=== PATIENT | female | born 1965 | race Caucasian/White ===

== ENCOUNTER 2021-02-27 16:55 | Emergency (ER) | payer SELFPAY ==
[2021-02-27 16:56] VITALS: BP 165/84; BP 186/95; PULSE 86; PULSE 87; RESP 18; RESP 19; TEMP 36.7; O2SAT 96; BMI 40.6
--- NOTE | 2021-02-27 17:20 | EKG12_ITS ---
Test Reason : SYNCOPE Blood Pressure : / mmHG Vent. Rate : 082 BPM Atrial Rate : 082 BPM P-R Int : 154 ms QRS Dur : 090 ms QT Int : 380 ms P-R-T Axes : 046 033 039 degrees QTc Int : 443 ms Normal sinus rhythm Nonspecific ST abnormality Abnormal ECG Confirmed by GUERO HOLLY, VISH ([id number]), editor trade journal LAILA ROSENBERG ([id number]) on 02/28/2021 11:46:50 AM Referred By: SANJUANITA Confirmed By:VISH JACK MD
--- NOTE | 2021-02-27 17:21 | EX.ED.DYSGE1 ---
HPI History of Present Illness Chief Complaint: Syncope Detail of Chief Complaint: Syncope Informant: patient Narrative Narrative: Patient presents to the emergency department via EMS for syncopal episode that occurred in her chiropractor's office. Patient states that she had an episode earlier this afternoon when she was standing and talking to a friend started feeling somewhat woozy so she sat down and the symptoms passed. Later in the day she went to the chiropractor to get adjusted and while sitting in a chair started feeling hot and sweaty and lightheaded. Patient had called her daughter who would come to the office and the daughter states the patient had a glazed look in her eyes and then she stood up to walk and started to fall but the daughter caught her so she did not injure herself. Patient denies any chest pain. She complains of a just a mild headache. Patient tells me she has had a cough for about 5 to 7 days. She has not been vaccinated against COVID. She denies fever. She has had some chest tightness since she developed a cough. Prior similar symptoms: No PFSH [facility] Medical History (Updated 02/27/21 @ 19:[address] Anyi Quijano, DO) Hypothyroid Home Medications levofloxacin 750 mg PO DAILY #7 tab 02/27/21 [Rx Last Taken Unknown] levothyroxine 125 mcg PO DAILY 02/27/21 [History Last Taken Unknown] Allergy/AdvReac Type Severity Reaction Status Date / Time prednisone Allergy Hives Verified 02/27/21 16:56 Social History Smoking Status: Never smoker ROS ROS ED ROS Narrative Syncopal episode Constitutional Constitutional ED: Reports systems reviewed and no addt'l complaints, except as documented; Denies body ache(s), change in weight or chills Eyes Eyes: Denies acute decrease in peripheral vision, change in vision, double vision or loss of vision ENT ENT ED: Reports none; Denies ear pain, lip swelling, loss taste/smell, neck pain, otalgia or sore throat Cardiovascular Cardiovascular: Reports none; Denies abdominal pain, chest pain with activity, leg edema, lightheadedness, palpitations, rapid heart rate or syncope Respiratory/Chest Respiratory/Chest: Reports none and cough; Denies change in mental status, dry cough, dyspnea, hemoptysis, shortness of breath at rest or shortness of breath with exertion Gastrointestinal Gastrointestinal: Reports none; Denies abdominal pain, change in stool character, diarrhea, hematemesis, hematochezia, melena, rectal bleeding or vomiting Genitourinary Genitourinary ED: Reports none; Denies abdominal discomfort, anuria, dysuria, genital pain or polyuria Musculoskeletal Musculoskeletal: Reports none; Denies arthralgias, back pain, difficulty walking, extremity pain, muscle weakness or myalgias Integumentary Reports none; Denies abscess or rash Neurologic Neurologic: Reports none and headache(s); Denies abnormal gait, confusion, focal weakness, frequent falls, loss of vision, numbness, paresthesias, radicular pain, vertigo or weakness Psychiatric Psychiatric: Reports systems reviewed and no addt'l complaints, except as documented and none; Denies behavioral changes, confusion, difficulty concentrating, hallucinations, suicidal ideation, tactile hallucinations or visual hallucinations Endocrine Endocrinology: Denies none, cold intolerance, excessive sweating, fatigue or heat intolerance Hematologic/Lymphatic Hematologic/Lymphatic: Reports none; Denies anemia, easy bleeding or easy bruising Allergic/Immunologic Allergic/Immunologic ED: Denies as per HPI, none, lip swelling, mouth swelling, throat swelling, tongue swelling or hives EXAM Physical Exam Const Vital Signs: 02/27/21 16:56 02/27/21 17:14 02/27/21 18:37 Temperature 98.1 F Temperature Source Oral Pulse Rate 86 Pulse Rate [Lying] 77 Pulse Rate [Sitting] 81 Pulse Rate [Standing] 96 Respiratory Rate 19 H Respiratory Effort Normal Non-Labored Respiratory Pattern Normal Blood Pressure 165/84 H Blood Pressure [Lying] 144/72 H Blood Pressure [Sitting] 141/90 H Blood Pressure [Standing] 159/94 H Blood Pressure Mean 111 Blood Pressure Mean [Lying] 96 Blood Pressure Mean [Sitting] 107 Blood Pressure Mean [Standing] 115 Pulse Ox 96 Oxygen Delivery Method Room Air Positive well nourished and well developed General Appearance ED: well developed and NAD HEENT Reports TM's clear and moist mucous membranes normocephalic and atraumatic; Negative for trauma or tenderness Tympanic Membrane ED: Yes TM's clear Eyes PERRL and EOMs intact bilaterally General Eye ED: Negative for pale conjunctiva or scleral icterus Neck no lymphadenopathy, supple and no JVD General: Negative for tenderness Chest Wall inspection of chest normal and palpation of chest normal Chest: Negative for tenderness Resp normal respiratory effort and clear to auscultation bilaterally Effort and Inspection: Negative for respiratory distress or pain with movement Auscultation: Negative for rhonchi, wheezes or diminished lung sounds Cardio regular rate, regular rhythm, S1 normal heart sound, S2 normal heart sound and no murmurs Peripheral Pulses: pulses 2+ throughout GI normal to inspection, nondistended, normoactive bowel sounds, soft to palpation, non-tender, non-distended and no masses Back/Spine no CVA tenderness and no thoracic nor lumbar tenderness Extremity normal to inspection General Extremety ED: Negative for edema General Extremity: Negative for edema Neuro oriented x3, CN's II-XII intact bilaterally, no sensory deficits noted and gait normal Sensorium / Orientation: awake, alert, oriented to person, oriented to place and oriented to time Motor Exam: strength 5/5 throughout and strength abnormal Psych mental status grossly normal Skin no rashes or lesions noted and no wounds MDM MDM MDM Narrative Medical decision making narrative: IV line established on arrival. Patient placed on a chart calculator. Orthostatic vital signs were negative. Patient was noted to have an elevated white blood cell count and evidence of right lower lobe pneumonia. Patient was started on Levaquin IV. At this point clinically the patient looks well I do not feel she will require admission. She is not hypoxic or tachycardic. Patient will be treated with Levaquin. Patient advised to return if increasing shortness of breath or condition worsen anyway. Patient otherwise to follow-up with primary care physician in 3 to 5 days. Lab Data Attestation: I reviewed the patient's lab results. Labs: Laboratory Results - last 24 hr 02/27/21 02/27/21 02/27/21 17:55 17:55 17:55 WBC 17.6 H RBC 4.86 Hgb 13.0 Hct 40.2 MCV 82.7 MCH 26.7 L MCHC 32.3 RDW Std Deviation 45.1 H RDW Coeff of Zaynab 14.9 H Plt Count 323 MPV 9.9 Immature Gran % (Auto) 0.400 Neut % (Auto) 86.4 H Lymph % (Auto) 7.8 L [place] % (Auto) 4.4 Eos % (Auto) 0.7 Baso % (Auto) 0.3 Absolute Neuts (auto) 15.2 H Absolute Lymphs (auto) 1.37 Nucleated RBC % 0 D-Dimer Quant (PE/DVT) 0.40 Sodium 136 Potassium 3.5 Chloride 104 Carbon Dioxide 24.0 Anion Gap 8 BUN 10 Creatinine 0.89 Estim Creat Clear Calc 58.39 Est GFR (MDRD) Af Amer 85 Est GFR (MDRD) Non-Af 70 BUN/Creatinine Ratio 11.3 Glucose 169 H Lactic Acid Calcium 9.3 Troponin I High Sens < 3 L 02/27/21 17:55 WBC RBC Hgb Hct MCV MCH MCHC RDW Std Deviation RDW Coeff of Zaynab Plt Count MPV Immature Gran % (Auto) Neut % (Auto) Lymph % (Auto) [place] % (Auto) Eos % (Auto) Baso % (Auto) Absolute Neuts (auto) Absolute Lymphs (auto) Nucleated RBC % D-Dimer Quant (PE/DVT) Sodium Potassium Chloride Carbon Dioxide Anion Gap BUN Creatinine Estim Creat Clear Calc Est GFR (MDRD) Af Amer Est GFR (MDRD) Non-Af BUN/Creatinine Ratio Glucose Lactic Acid 2.4 H* Calcium Troponin I High Sens Radiography Diagnostic Testing: Clinical Impression(s) from Imaging Studies Chest X-Ray 02/27/21 18:05 IMPRESSION: Right middle lobe pneumonia. Electronically Signed: Dean Pearson MD at 18:14 EST Tel , Service support , 1 view chest x-ray obtained interpreted by myself as increased markings right lower lobe. Radiology felt patient had right middle lobe pneumonia. EKG Initial EKG: Attestation: I personally reviewed and interpreted this EKG as follows: Comments: Sinus rhythm with a ventricular rate of [address] changes. Discharge Plan Triage Chief Complaint: Syncope ED Provider: Anyi Quijano Dx/Rx/DC Orders Clinical Impression: Pneumonia, Syncope Instructions: ED Pneumonia (Adult), ED Fainting, Uncertain Cause Prescriptions: New levofloxacin 750 mg tablet 750 mg PO DAILY Qty: 7 RF: 0 No Action levothyroxine 125 mcg Tablet 125 mcg PO DAILY RF: 0 Primary Care Provider: Ike Sheth Referrals: Ike Sheth DO [Primary Care Provider] - 3-5 Days Disposition Disposition: Home, Self Care
[2021-02-27] MEDS: 0.9% Normal Saline 1,000 ML 150 ML IV (17:44)
--- NOTE | 2021-02-27 18:02 | CM.ED ---
RADHA Note Referral Source: Case Find Referral Reason: No insurance SW met with patient and her . Provided them with self pay packet. Nguyen BAUTISTA
--- NOTE | 2021-02-27 18:05 | RAD_ITS ---
STUDY: X-RAY CHEST REASON FOR EXAM: Female, 55 years old. cough TECHNIQUE: Single AP portable view of the chest. COMPARISON: None. FINDINGS: Alveolar opacity in the lower right lung consistent with right middle lobe pneumonia. There is no demonstrated pleural abnormality. Normal size heart. Normal mediastinum and derick. Normal visualized pulmonary arteries. Normal visualized aortic arch and descending thoracic aorta. Normal visualized thoracic spine. Normal visualized ribs, clavicles, and shoulders. There is no demonstrated abnormality of the visualized soft tissue structures of the upper abdomen. RAD/Chest 1 View (Portable) IMPRESSION: Right middle lobe pneumonia. Electronically Signed: Dean Pearson MD at 18:14 EST Tel , Service support ,
[2021-02-27 18:08] LABS: Absolute Lymphocyte Count 1.37 X10^3/uL (0.83-4.51); Absolute Neutrophil Count 15.2 X10^3/uL (2.0-7.7); Basophil# 0.05 X10^3/uL; Basophil% 0.3 % (0-1); Eosinophil# 0.12 X10^3/uL; Eosinophils% 0.7 % (0-5); Hematocrit 40.2 % (37-47); Lymphocyte # 1.37 X10^3/ul (0.83-4.51); Lymphocyte % 7.8 % (19-41); Mean Corp Hgb Conc 32.3 g/dL (32-36); Mean Corpuscular Hgb 26.7 pg (27.0-32.0); Mean Corpuscular Volume 82.7 fL (81-99); Mean Platelet Vol. 9.9 fl (6.2-12.0); Monocyte# 0.77 X10^3/uL; Monocyte% 4.4 % (0-10); NRBC Flagged by Analyzer 0 % (0-5); Neutrophil # 15.22 X10^3/uL (2.7-7.7); Neutrophil % 86.4 % (47-70); Platelet Count 323 K/mm3 (150-450); RBC Distribution Width CV 14.9 % (11.6-14.6); RBC Distribution Width SD 45.1 fl (35.1-43.9); Red Blood Count 4.86 M/mm3 (4.2-5.4); White Blood Count 17.6 K/mm3 (4.4-11.0)
[2021-02-27 18:27] LABS: Anion Gap 8 (5-15); BUN 10 mg/dL (7-18); BUN/Creat Ratio 11.3 RATIO (10-20); Calcium,Total 9.3 mg/dL (8.5-10.1); Chloride 104 mmol/L (98-107); Creatinine, Serum 0.89 mg/dL (0.55-1.02); EST Glomerular Filtration Rate 70 mL/min (>60); Est Glom Filt Rate - Afr Amer 85 mL/min (>60); Estimated Creatinine Clearance 58.39 ml/min; Glucose 169 mg/dL (74-106); Potassium 3.5 mmol/L (3.5-5.1); Sodium Level 136 mmol/L (136-145); Troponin-I HS < 3 pg/mL (3.0-54.0)
[2021-02-27 18:37] VITALS: BP 141/90; BP 144/72; BP 159/94; PULSE 77; PULSE 81; PULSE 96
[2021-02-27] MEDS: levoFLOXacin IV 750 MG/150 ML BAG 100 MG IV (18:47)
[2021-02-27 19:11] LABS: Lactic Acid 2.4 mmol/L (0.4-1.9)
[2021-02-27 20:26] VITALS: BP 150/94; PULSE 86; RESP 21; O2SAT 95
[2021-02-27 22:04] LABS: Reflex Lactate? Y
== END 2021-02-27 20:27 | disposition home or self-care (01) ==
PROVIDERS: Emergency Provider Emergency Medicine; PCP Family Medicine; Visit Provider Emergency Medicine
DX: J18.9 Pneumonia, unspecified organism (principal); R55 Syncope and collapse; E03.9 Hypothyroidism, unspecified; Z79.899 Other long term (current) drug therapy
CPT/HCPCS: 71045; 80048; 83605; 84484; 85025; 85379; 87426; 93005; 96361; 96365; 96366; 99285; J7030; A4216

== ENCOUNTER 2023-11-24 12:04 | Observation (INO) | payer OTHER, SELFPAY ==
[2023-11-24 12:05] VITALS: BP 174/85; PULSE 64; RESP 18; TEMP 36.4; O2SAT 99; BMI 39.6
--- NOTE | 2023-11-24 12:32 | EX.ED.DYSGE1 ---
HPI <MILEY Carlos - Last Filed: 11/24/23 15:54> History of Present Illness Chief Complaint: GI Bleed Narrative Narrative: Patient is a 58-year-old female with history of hypothyroidism presents to the emergency department with 3 weeks of worsening abdominal pain, nausea and vomiting. Patient states 2 nights ago, she did have blood coming from her rectum. She states it was just straight blood. This happened 2-3 times on Friday. She has had a normal bowel movement this morning with no blood. Secondary to her lower abdominal cramping, she was told to come to the emergency department. She denies any dizziness, chest pain or shortness of breath. PFSH <MILEY Carlos - Last Filed: 11/24/23 15:54> [facility] Medical History Hypothyroid Home Medications ?Medication ?Instructions ?Recorded ?Last Taken ?Type levofloxacin 750 mg tablet 750 mg PO DAILY #7 tabs 02/27/21 Unknown Rx levothyroxine 125 mcg tablet 125 mcg PO DAILY 02/27/21 Unknown History Allergy/AdvReac Type Severity Reaction Status Date / Time prednisone Allergy Hives Verified 11/24/23 12:07 Family History (Updated 11/24/23 @ 16:[address] Lele Michael MD) Other Heart disease Social History Smoking Status: Never smoker ROS <MILEY Carlos - Last Filed: 11/24/23 15:54> ROS ED ROS Narrative Constitutional: Negative for fever, chills, weight loss, weakness Eyes: Negative for vision loss, vision change, double vision ENT: Negative for any sore throat, ear pain, congestion Cardiovascular: Negative for any chest pain, tightness, palpitations Respiratory: Negative for any cough, sputum production, hemoptysis, dyspnea, dyspnea on exertion, orthopnea Gastrointestinal: Negative for any vomiting, diarrhea, constipation, blood in vomit. Positive lower abdominal pain, nausea vomiting, blood in stool : Negative for any urinary frequency, dysuria, retention, blood in urine Muscle skeletal: Negative for any neck pain, back pain Neurological: Negative for any headache, syncope, dizziness Skin: Negative for any rashes, itching, abrasions, lacerations Psychiatric: Negative for any depression, anxiety, stress, suicidal ideation, homicidal ideation Hematologic: Negative for any excessive bruising, easy bleeding EXAM <MILEY Carlos - Last Filed: 11/24/23 15:54> Physical Exam Narrative Exam Narrative: Vital signs reviewed. HEET: Head normocephalic atraumatic, TMs clear bilaterally. Posterior pharynx is clear, moist mucous membranes. Nares clear bilaterally. Neck: Supple with no lymphadenopathy or tenderness. No signs of meningismus. Cardiac: Regular rate and rhythm no murmurs gallops or rubs, equal peripheral pulses bilaterally. Respiratory: Lungs clear to auscultation bilaterally. No chest tenderness. Abdomen: Soft, nondistended. No abdominal bruit or pulsatile masses. No hepatosplenomegaly. Tenderness to the lower abdomen. No peritoneal signs. Active bowel sounds in all quadrants Extremities: No peripheral edema, no signs of gross trauma or deformity. Active full range of motion of all extremities. Neuro: Cranial nerves II through XII intact, no focal neurological deficits. Skin: Clean dry and intact with no rash, purpura, petechiae, vesicles or pustules. Backs/flank: No CVA tenderness, no midline spinal tenderness, no deformity. Psych: Normal mood and affect. No SI, HI or acute psychosis. Const Vital Signs: 11/24/23 12:05 11/24/23 14:54 Temperature 97.6 F L Temperature Source Temporal Pulse Rate 64 59 L Respiratory Rate 18 18 Blood Pressure 174/85 H 163/84 H Blood Pressure Mean 114 110 Pulse Ox 99 100 Oxygen Delivery Method Room Air Room Air Positive well nourished and well developed General Appearance ED: well developed <Dr. Donny Bliss DO - Last Filed: 11/24/23 19:37> Physical Exam Const Vital Signs: 11/24/23 12:05 11/24/23 14:54 Temperature 97.6 F L Temperature Source Temporal Pulse Rate 64 59 L Respiratory Rate 18 18 Blood Pressure 174/85 H 163/84 H Blood Pressure Mean 114 110 Pulse Ox 99 100 Oxygen Delivery Method Room Air Room Air MDM <MILEY Carlos - Last Filed: 11/24/23 15:54> [facility] Lab Data Labs: Laboratory Results - last 24 hr 11/24/23 12:53 WBC 8.0 RBC 4.54 Hgb 13.6 Hct 40.8 MCV 89.9 MCH 30.0 MCHC 33.3 RDW Std Deviation 41.3 RDW Coeff of Zaynab 12.5 Plt Count 322 MPV 9.7 Immature Gran % (Auto) 0.300 Neut % (Auto) 62.4 Lymph % (Auto) 28.6 [place] % (Auto) 6.1 Eos % (Auto) 1.8 Baso % (Auto) 0.8 Absolute Neuts (auto) 5.0 Absolute Lymphs (auto) 2.28 Nucleated RBC % 0 Sodium 140 Potassium 4.2 Chloride 108 H Carbon Dioxide 26.0 Anion Gap 6 BUN 13 Creatinine 0.81 Estim Creat Clear Calc 85.10 Est GFR (MDRD) Af Amer 93 Est GFR (MDRD) Non-Af 77 BUN/Creatinine Ratio 16.1 Glucose 95 Lactic Acid 1.1 Calcium 9.3 Total Bilirubin 1.30 H AST 17 ALT 24 Alkaline Phosphatase 71 Total Protein 7.9 Albumin 3.6 Globulin 4.3 H Albumin/Globulin Ratio 0.8 L Lipase 48 Radiography Diagnostic Testing: Clinical Impression(s) from Imaging Studies Abdomen/Pelvis CT 11/24/23 13:55 IMPRESSION: Fatty infiltration of the liver. Scattered sigmoid diverticula. Electronically Signed: Godwin Peace MD at 14:14 EDT , Treatment and Re-Evaluation :: Differential diagnosis includes however is not limited to: Diverticulitis, colitis, Crohn's disease, mass, diverticulitis Patient appears generally well, vital signs are stable, patient is nontoxic-appearing. Presenting to the emergency department for with complaints of 3 weeks of generalized lower abdominal pain, blood in her stool. Patient will receive a full abdominal workup.Patient will receive a full laboratory workup, patient CBC shows stable hemoglobin at 13.6, white blood cell count of 8.0 which is negative. Chemistries were unremarkable, total bilirubin is 1.3, lipase was negative. Patient's stool was positive for blood on rectal exam. CT scan of the abdomen pelvis showed fatty infiltration of the liver, scattered sigmoid diverticula, secondary to the patient having new onset of rectal bleeding, abdominal pain, I will reach out to Dr. Reynolds from GI. Spoke with Dr. Reynolds, at this time, the patient will be admitted to the hospital. Dr. Reynolds will scope the patient tomorrow. I spoke with the patient she is agreeable. Patient stable for admission. <Dr. Donny Bliss DO - Last Filed: 11/24/23 19:37> [facility] Lab Data Labs: Laboratory Results - last 24 hr 11/24/23 12:53 WBC 8.0 RBC 4.54 Hgb 13.6 Hct 40.8 MCV 89.9 MCH 30.0 MCHC 33.3 RDW Std Deviation 41.3 RDW Coeff of Zaynab 12.5 Plt Count 322 MPV 9.7 Immature Gran % (Auto) 0.300 Neut % (Auto) 62.4 Lymph % (Auto) 28.6 [place] % (Auto) 6.1 Eos % (Auto) 1.8 Baso % (Auto) 0.8 Absolute Neuts (auto) 5.0 Absolute Lymphs (auto) 2.28 Nucleated RBC % 0 Sodium 140 Potassium 4.2 Chloride 108 H Carbon Dioxide 26.0 Anion Gap 6 BUN 13 Creatinine 0.81 Estim Creat Clear Calc 85.10 Est GFR (MDRD) Af Amer 93 Est GFR (MDRD) Non-Af 77 BUN/Creatinine Ratio 16.1 Glucose 95 Lactic Acid 1.1 Calcium 9.3 Total Bilirubin 1.30 H AST 17 ALT 24 Alkaline Phosphatase 71 Total Protein 7.9 Albumin 3.6 Globulin 4.3 H Albumin/Globulin Ratio 0.8 L Lipase 48 Radiography Diagnostic Testing: Clinical Impression(s) from Imaging Studies Abdomen/Pelvis CT 11/24/23 13:55 IMPRESSION: Fatty infiltration of the liver. Scattered sigmoid diverticula. Electronically Signed: Godwin Peace MD at 14:14 EDT , Treatment and Re-Evaluation :: Differential diagnosis includes however is not limited to: Diverticulitis, colitis, Crohn's disease, mass, diverticulitis Patient appears generally well, vital signs are stable, patient is nontoxic-appearing. Presenting to the emergency department for with complaints of 3 weeks of generalized lower abdominal pain, blood in her stool. Patient will receive a full abdominal workup.Patient will receive a full laboratory workup, patient CBC shows stable hemoglobin at 13.6, white blood cell count of 8.0 which is negative. Chemistries were unremarkable, total bilirubin is 1.3, lipase was negative. Patient's stool was positive for blood on rectal exam. CT scan of the abdomen pelvis showed fatty infiltration of the liver, scattered sigmoid diverticula, secondary to the patient having new onset of rectal bleeding, abdominal pain, I will reach out to Dr. Reynolds from GI. Spoke with Dr. Reynolds, at this time, the patient will be admitted to the hospital. Dr. Reynolds will scope the patient tomorrow. I spoke with the patient she is agreeable. Patient stable for admission. Supervisory Physician Note Patient was seen and examined with the Advanced Practice Provider. Nursing notes and vital signs have been reviewed. Pertinent old records have been reviewed. I agree with the essential elements of the RAINA's history, physical exam, assessment, and plan. The differential diagnosis and management options were discussed with the RAINA. I participated in determining and agree with the management, procedures, final impression and disposition as documented. See changes noted by me. Please see addendum or separate note for any additional details. 58-year-old female presents for evaluation of bloody bowel movements. Patient states she has been having lower abdominal pain with nausea and vomiting. She states 2 nights ago she noticed bright red blood and clots in her stool. Endorses diarrhea. States she did not see blood in her stool today. Denies black tarry stools. Denies history of diverticulosis or diverticulitis. Has never had a colonoscopy. Denies any fever, chills, chest pain, shortness of breath, dysuria, lightheadedness. Pertinent exam findings: CV: RRR, no murmurs Resp: Lungs CTA BL, no w/r/c GI: Abd soft, non-distended, tender to palpation of the bilateral quadrants, no rebound or rigidity Rectal: Small nonthrombosed external hemorrhoid. Normal tone and sensation. No masses, fluctuance, or tenderness. No pain out of proportion. Stool brown. Differential diagnosis includes but is not limited to diverticulosis, diverticulitis, colitis, gastroenteritis Abdominal pain workup ordered including CT abdomen pelvis. CBC without leukocytosis or anemia. CMP relatively unremarkable except for mildly elevated bilirubin at 1.3. Patient not having any right upper quadrant abdominal pain. No transaminitis. Lipase unremarkable. CT abdomen pelvis shows fatty liver with sigmoid diverticula. No diverticulitis. Occult positive. Given patient's continued GI bleed with abdominal pain and no previous history of colonoscopy, GI was consulted and patient was discussed. Plan is for admission with colonoscopy tomorrow. Impression: 1. Lower GI bleed 2. Diverticulosis 3. Fatty Liver Discharge Plan Dx/Rx/DC Orders Clinical Impression: Abdominal pain, Diverticular disease, Bright red rectal bleeding Disposition Disposition: Acute Care Hospital [facility] Discharge Date/Time: 11/24/23 17:58
[2023-11-24 13:04] LABS: Absolute Lymphocyte Count 2.28 X10^3/uL (0.83-4.51); Basophil# 0.06 X10^3/uL; Basophil% 0.8 % (0-1); Eosinophil# 0.14 X10^3/uL; Eosinophils% 1.8 % (0-5); Hematocrit 40.8 % (37-47); Hemoglobin 13.6 g/dL (12.0-15.0); Lymphocyte # 2.28 X10^3/ul (0.83-4.51); Lymphocyte % 28.6 % (19-41); Mean Corp Hgb Conc 33.3 g/dL (32-36); Mean Corpuscular Volume 89.9 fL (81-99); Mean Platelet Vol. 9.7 fl (6.2-12.0); Monocyte# 0.49 X10^3/uL; Monocyte% 6.1 % (0-10); NRBC Flagged by Analyzer 0 % (0-5); Neutrophil # 4.98 X10^3/uL (2.7-7.7); Neutrophil % 62.4 % (47-70); Platelet Count 322 K/mm3 (150-450); RBC Distribution Width CV 12.5 % (11.6-14.6); RBC Distribution Width SD 41.3 fl (35.1-43.9); Red Blood Count 4.54 M/mm3 (4.2-5.4)
[2023-11-24 13:21] LABS: ALB/GLOB Ratio 0.8 RATIO (0.9-2.4); AST(SGOT) 17 U/L (15-37); Alanine Aminotransfer ALT/SGPT 24 U/L (13-56); Albumin, Serum 3.6 g/dL (3.2-5.0); Alkaline Phosphatase 71 U/L (45-117); Anion Gap 6 (5-15); BUN 13 mg/dL (7-18); BUN/Creat Ratio 16.1 RATIO (10-20); Calcium,Total 9.3 mg/dL (8.5-10.1); Chloride 108 mmol/L (98-107); Creatinine, Serum 0.81 mg/dL (0.55-1.02); EST Glomerular Filtration Rate 77 mL/min (>60); Est Glom Filt Rate - Afr Amer 93 mL/min (>60); Globulin 4.3 g/dL (2.2-4.2); Glucose 95 mg/dL (74-106); Lipase 48 U/L (13-75); Potassium 4.2 mmol/L (3.5-5.1); Protein, Total 7.9 g/dL (6.4-8.2); Sodium Level 140 mmol/L (136-145)
[2023-11-24 13:31] LABS: Lactic Acid 1.1 mmol/L (0.4-1.9)
--- NOTE | 2023-11-24 13:55 | CT_ITS ---
STUDY: CT ABDOMEN AND PELVIS WITH CONTRAST REASON FOR EXAM: Female, 58 years old. Abdominal pain RADIATION DOSAGE (If Supplied By Facility): CTDIvol = ( 15.92 ) mGy, DLP = ( 1231.64 ) mGycm TECHNIQUE: Transaxial images were obtained from the dome of the diaphragm to the symphysis pubis without oral contrast. IV 100mL Isovue-300 was administered. Sagittal and coronal images were reconstructed. Individualized dose optimization techniques were used for this CT. COMPARISON: None. FINDINGS: Calcified right hilar lymph nodes. Calcified granuloma at the right lung base. Minimal increased linear markings at the lung bases suggests a mild linear atelectasis. The visualized portions of the heart are within normal limits. There is decreased attenuation of the liver consistent with steatosis. Normal gallbladder and extrahepatic biliary system. Normal spleen. Normal pancreas. Normal bilateral adrenal glands. Normal right kidney. Normal left kidney. Normal visualized stomach. Normal small intestine. There are scattered colonic diverticula consistent with diverticulosis. The appendix is visualized and appears normal. There is scattered atherosclerotic calcification of the abdominal aorta, without a demonstrated aneurysm. Normal inferior vena cava. Normal retroperitoneum. Normal urinary bladder. Findings suggestive of postsurgical changes at the level of the umbilicus. Small benign-appearing lymph nodes are seen in both groins. This space narrowing and degeneration at the L5-S1 level. CT/Abdomen/Pelvis W IV Cont ONLY IMPRESSION: Fatty infiltration of the liver. Scattered sigmoid diverticula. Electronically Signed: Godwin Peace MD at 14:14 EDT ,
[2023-11-24 14:54] VITALS: BP 163/84; PULSE 59; RESP 18; O2SAT 100
--- NOTE | 2023-11-24 15:41 | HP.PCM.HOS_ITS ---
HPI - General General Date of Admission: 11/24/23 Date of Service: 11/24/23 Chief Complaint: Hematochezia HPI Narrative WILLIE GODINEZ, is a 58 F with a significant history of hypothyroidism who presents present emergency department with hematochezia. Her symptoms started 3 days ago. She was passing bloody clumps rectally. Associated with her symptoms is a 3-week history of lower abdominal pain. Her rectal bleeding gradually reduced to a point where she would only see blood when she wiped her rectum. On the day of presentation she did not notice any blood at all. On the day of presentation she went to see her PCP who recommended patient comes to the emergency department. At the emergency department patient was found to have blood in the stool. She has never had a colonoscopy before. ED provider discussed case with GI who recommended patient stays at the hospital for colonoscopy. [facility] Medical History Hypothyroid Home Medications ?Medication ?Instructions ?Recorded ?Last Taken ?Type levofloxacin 750 mg tablet 750 mg PO DAILY #7 tabs 02/27/21 Unknown Rx levothyroxine 125 mcg tablet 125 mcg PO DAILY 02/27/21 Unknown History Allergy/AdvReac Type Severity Reaction Status Date / Time prednisone Allergy Hives Verified 11/24/23 12:07 Family History (Updated 11/24/23 @ 16:[address] Lele Michael MD) Other Heart disease Social History Smoking Status: Never smoker ROS ROS Narrative Pertinent positives and pertinent negatives as noted in HPI. All other systems were reviewed and are negative Vital Signs Vital Signs Vital Signs: 11/24/23 12:05 11/24/23 14:54 Temperature 97.6 F L Temperature Source Temporal Pulse Rate 64 59 L Respiratory Rate 18 18 Blood Pressure 174/85 H 163/84 H Blood Pressure Mean 114 110 Pulse Ox 99 100 Oxygen Delivery Method Room Air Room Air Weight Weight: 101.605 kg Body Mass Index (BMI) 39.6 Physical Exam Narrative Physical exam: General: Well-nourished, well-developed. Head: Normocephalic, atraumatic, no tenderness Eyes: Vision is grossly intact. EOMI ENT, no trauma, moist mucous membranes, no rhinorrhea Neck: Nontender, No thyromegaly. CVS: Regular rate and rhythm. S1-S2 present. No murmur, gallop or rub. Respiratory : clear to auscultation bilaterally, chest wall nontender Abdomen: Soft, nontender, nondistended, normal bowel sounds, no masses : Deferred Back: Nontender, no CVA tenderness, no midline spinal tenderness, deformities, step-offs Extremities: Nontender full range of motion, no trauma Skin: Normal color, no trauma, abrasions Neuro: Alert, oriented, cranial nerves II through XII grossly intact. Psychiatry: Normal mood. Normal affect. Not depressed. Not anxious. Results Lab / Micro Data 11/24/23 12:53 11/24/23 12:53 Labs: Laboratory Results - last 24 hr 11/24/23 12:53: WBC 8.0, RBC 4.54, Hgb 13.6, Hct 40.8, MCV 89.9, MCH 30.0, MCHC 33.3, RDW Std Deviation 41.3, RDW Coeff of Zaynab 12.5, Plt Count 322, MPV 9.7, Immature Gran % (Auto) 0.300, Neut % (Auto) 62.4, Lymph % (Auto) 28.6, [place] % (Auto) 6.1, Eos % (Auto) 1.8, Baso % (Auto) 0.8, Absolute Neuts (auto) 5.0, Absolute Lymphs (auto) 2.28, Nucleated RBC % 0, Sodium 140, Potassium 4.2, C hloride 108 H, Carbon Dioxide 26.0, Anion Gap 6, BUN 13, Creatinine 0.81, Estim Creat Clear Calc 85.10, Est GFR (MDRD) Af Amer 93, Est GFR (MDRD) Non-Af 77, BUN/Creatinine Ratio 16.1, Glucose 95, Lactic Acid 1.1, Calcium 9.3, Total Bilirubin 1.30 H, AST 17, ALT 24, Alkaline Phosphatase 71, Total Protein 7.9, Albumin 3.6, Globulin 4.3 H, Albumin/Globulin Ratio 0.8 L, Lipase 48 Micro: Microbiology 11/24/23 13:25 Stool Stool Occult Blood (REDD) - Final Occult Blood Positive Imaging Radiology Impression Abdomen/Pelvis CT 11/24/23 13:55 IMPRESSION: Fatty infiltration of the liver. Scattered sigmoid diverticula. Electronically Signed: Godwin Peace MD at 14:14 EDT , Assessment & Plan Assessment/Plan (1) Bright red rectal bleeding: (2) Abdominal pain: QUALIFIERS: Abdominal location: lower abdomen, unspecified Q ualified Code(s): R10.30 - Lower abdominal pain, unspecified (3) [place] disease: PLAN: Plan CT of abdomen and pelvis independently interpreted by myself with results showing Fatty infiltration of the liver; Scattered sigmoid diverticula. Agrees with radiology interpretation. Discussed case with ED physician and GI. IV fluids ordered H&H every 6 hours Morphine IV for pain Clear liquid diet and then n.p.o. IV fluids ordered. Bowel prep ordered by GI. Morbid Obesity: BMI: 39.7 kg/m?. Complicates care. Lifestyle modification recommended. Hyperbilirubinemia Trend CMP. Per GI likely Gilbert's disease. DVT prophylaxis SCD Advance care planning: Discussed with patient and family advanced directives as well as CODE STATUS. Explained various CODE STATUS: FULL CODE, DNR CCA, DNR CCA with no intubation, and DNR CC- and what each meant. Patient elected to be a full code with CPR and intubation if warranted. Order was placed. Patient's is her surrogate decision maker. Time spent on discussion 16 minutes. Time spent in the patient's overall evaluation,decision-making process, review of diagnostic data, adjustment of management, discussion with other providers, nursing and ancillary staff involved in patient's care documentation, 75 minutes. Charges/Coding Visit Charges Inpatient E&M: 86137 Init Hosp L3 Procedures Hospitalists Procedures: 91766 Advncd Care Plan 30 Min
[2023-11-24 16:00] VITALS: BP 156/77
--- NOTE | 2023-11-24 18:02 | EX.PCM.CON.G ---
HPI Consult Data Date of Consult: 11/24/23 HPI Narrative Reason for Consultation: Lower GI bleed HPI Narrative: WILLIE GODINEZ, is a 58-year-old female with history of hypothyroidism presents to the emergency department with 3 weeks of worsening abdominal pain, nausea and vomiting. Patient states 2 nights ago, she did have blood coming from her rectum. She states it was just straight blood. This happened 2-3 times on Friday. She has had a normal bowel movement this morning with no blood. Secondary to her lower abdominal cramping, she was told to come to the emergency department. She denies any dizziness, chest pain or shortness of breath. She has no history of bleeding problems. She has never had a colonoscopy. She has no history of blood clots. She has no family history of bleeding issues. She does not take any blood thinners on a daily basis. 11/24/23 12:53: WBC 8.0, RBC 4.54, Hgb 13.6, Hct 40.8, MCV 89.9,, Plt Count 322, Sodium 140, Potassium 4.2, Chloride 108 H, Carbon Dioxide 26.0, Anion Gap 6, BUN 13, Creatinine 0.81, Glucose 95, Lactic Acid 1.1, Calcium 9.3, Total Bilirubin 1.30 H, AST 17, ALT 24, Alkaline Phosphatase 71, Total Protein 7.9, Albumin 3.6, Globulin 4.3 H, Albumin/Globulin Ratio 0.8 L, Lipase 48 CT scan of the abdomen and pelvis: Calcified right hilar lymph nodes. Calcified granuloma at the right lung base. Minimal increased linear markings at the lung bases suggests a mild linear atelectasis. The visualized portions of the heart are within normal limits. There is decreased attenuation of the liver consistent with steatosis. Normal gallbladder and extrahepatic biliary system. Normal spleen. Normal pancreas. Normal bilateral adrenal glands. Normal right kidney. Normal left kidney. Normal visualized stomach. Normal small intestine. There are scattered colonic diverticula consistent with diverticulosis. The appendix is visualized and appears normal. There is scattered atherosclerotic calcification of the abdominal aorta, without a demonstrated aneurysm. Normal inferior vena cava. Normal retroperitoneum. Normal urinary bladder. Findings suggestive of postsurgical changes at the level of the umbilicus. Small benign-appearing lymph nodes are seen in both groins. This space narrowing and degeneration at the L5-S1 level. [facility] Medical History Hypothyroid Home Medications ?Medication ?Instructions ?Recorded ?Last Taken ?Type levofloxacin 750 mg tablet 750 mg PO DAILY #7 tabs 02/27/21 Unknown Rx levothyroxine 125 mcg tablet 125 mcg PO DAILY 02/27/21 Unknown History Allergy/AdvReac Type Severity Reaction Status Date / Time prednisone Allergy Hives Verified 11/24/23 12:07 Family History (Updated 11/24/23 @ 16:[address] Lele Michael MD) Other Heart disease Social History Smoking Status: Never smoker ROS Review of Systems ROS Unobtainable: other Constitutional Constitutional: Denies fatigue, fever(s), poor appetite, weight gain or weight loss ENT HEENT: Denies mouth lesions Cardiovascular Cardiovascular: Denies abdominal bloating, abdominal edema or abdominal pain Respiratory/Chest Respiratory/Chest: Denies change in mental status, change in phlegm color, chest congestion or chest tightness Gastrointestinal Gastrointestinal: Denies belching, bloating, change in bowel habits, change in stool character, chewing difficulty, coffee ground emesis, constipation, cramping, diarrhea, dyspepsia, dysphagia, early satiety, excessive flatus, fecal incontinence, heartburn, hematemesis, hematochezia, hemorrhoids, loose stools, melena, nausea, odynophagia, rectal bleeding, tenesmus, vomiting or weight changes Genitourinary Genitourinary: Denies abdominal discomfort, burning urination or itching Musculoskeletal Musculoskeletal: Reports as per HPI; Denies muscle weakness or myalgias Integumentary Integumentary: Denies jaundice Neurologic Neurologic: Denies lack of coordination or weakness Psychiatric Psychiatric: Denies confusion, depression, memory loss, mood swings, paranoia or suicidal ideation Endocrine Endocrinology: Denies systems reviewed and no addt'l complaints, except as documented Hematologic/Lymphatic Hematologic/Lymphatic: Denies anemia, easy bleeding, easy bruising or lymphadenopathy Allergic/Immunologic Allergic/Immunologic: Denies systems reviewed and no addt'l complaints, except as documented Physical Exam Narrative Physical exam: General: Well-nourished, well-developed. Head: Normocephalic, atraumatic, no tenderness Eyes: Vision is grossly intact. EOMI ENT, no trauma, moist mucous membranes, no rhinorrhea Neck: Nontender, No thyromegaly. CVS: Regular rate and rhythm. S1-S2 present. No murmur, gallop or rub. Respiratory : clear to auscultation bilaterally, chest wall nontender Abdomen: Soft, nontender, nondistended, normal bowel sounds, no masses : Deferred Back: Nontender, no CVA tenderness, no midline spinal tenderness, deformities, step-offs Extremities: Nontender full range of motion, no trauma Skin: Normal color, no trauma, abrasions Neuro: Alert, oriented, cranial nerves II through XII grossly intact. Psychiatry: Normal mood. Normal affect. Not depressed. Not anxious. Lab / Micro Data 11/24/23 12:53 11/24/23 12:53 Labs: Laboratory Results - last 24 hr 11/24/23 12:53: WBC 8.0, RBC 4.54, Hgb 13.6, Hct 40.8, MCV 89.9, MCH 30.0, MCHC 33.3, RDW Std Deviation 41.3, RDW Coeff of Zaynab 12.5, Plt Count 322, MPV 9.7, Immature Gran % (Auto) 0.300, Neut % (Auto) 62.4, Lymph % (Auto) 28.6, [place] % (Auto) 6.1, Eos % (Auto) 1.8, Baso % (Auto) 0.8, Absolute Neuts (auto) 5.0, Absolute Lymphs (auto) 2.28, Nucleated RBC % 0, Sodium 140, Potassium 4.2, Chloride 108 H, Carbon Dioxide 26.0, Anion Gap 6, BUN 13, Creatinine 0.81, Estim Creat Clear Calc 85.10, Est GFR (MDRD) Af Amer 93, Est GFR (MDRD) Non-Af 77, BUN/Creatinine Ratio 16.1, Glucose 95, Lactic Acid 1.1, Calcium 9.3, Total Bilirubin 1.30 H, AST 17, ALT 24, Alkaline Phosphatase 71, Total Protein 7.9, Albumin 3.6, Globulin 4.3 H, Albumin/Globulin Ratio 0.8 L, Lipase 48 Micro: Microbiology 11/24/23 13:25 Stool Stool Occult Blood (REDD) - Final Occult Blood Positive Imaging Radiology Impression Abdomen/Pelvis CT 11/24/23 13:55 IMPRESSION: Fatty infiltration of the liver. Scattered sigmoid diverticula. Electronically Signed: Godwin Peace MD at 14:14 EDT , Assessment & Plan Assessment/Plan (1) Bright red rectal bleeding: PLAN: 58-year-old comes in with lower GI bleeding: -Differential diagnosis does include ischemic colitis, diverticular bleed, hemorrhoidal bleeding, stercoral ulcer, angiodysplasia, ulcerative colitis, infectious colitis. Recommendations are stool studies including stool for enteric pathogens, C. difficile, ESR, CRP, IBD SGI, MANNY, ANCA, SURYA comprehensive (2) Abdominal pain: PLAN: Abdominal pain possibly secondary to underlying cramping causing ischemic colitis. (3) [place] disease: PLAN: She has elevated bilirubin in the setting of normal alkaline phosphatase and AST and ALT likely secondary to just indirect hyperbilirubinemia from [place] disease. Recommend to fractionate her bilirubin. Charges/Coding Visit Charges Inpatient E&M: 38162 Init Hosp L3
[2023-11-24 18:23] VITALS: BMI 40.4
[2023-11-24 18:32] VITALS: BP 146/86; PULSE 60; RESP 18; TEMP 36.8; O2SAT 98
[2023-11-24 20:31] LABS: Hematocrit 40.4 % (37-47); Hemoglobin 13.4 g/dL (12.0-15.0)
[2023-11-24 20:32] LABS: Erythrocyte Sedimentation Rate 35 mm/hr (0-30)
[2023-11-24 20:37] LABS: CRP 8.49 mg/L (0.0-3.0)
[2023-11-24 21:08] VITALS: BMI 40.4
[2023-11-24 21:10] VITALS: BP 156/92; PULSE 63; RESP 16; TEMP 36.3; O2SAT 98
[2023-11-24] MEDS: Polyethylene Glycol 3350 BOWEL PREP PO (21:47)
[2023-11-24] MEDS: Bisacodyl 5 MG Tablet 20 MG PO (21:47)
[2023-11-24] MEDS: 0.9% Normal Saline (1000mL) 1,000 ML 75 ML IV (21:48)
[2023-11-24 21:57] VITALS: BP 121/88; PULSE 65; RESP 16; TEMP 36.2; O2SAT 95
[2023-11-24] MEDS: Ondansetron 4 MG/2 ML Vial IV (23:42)
[2023-11-25] VITALS (13 sets, daily range): BP systolic 115–136; BP diastolic 62–79; PULSE 58–76; RESP 16–18; TEMP 36–36.7; O2SAT 94–98; BMI 40.4
[2023-11-25 02:42] LABS: Hematocrit 44.1 % (37-47); Hemoglobin 14.5 g/dL (12.0-15.0)
[2023-11-25 03:09] LABS: ALB/GLOB Ratio 0.7 RATIO (0.9-2.4); AST(SGOT) 21 U/L (15-37); Alanine Aminotransfer ALT/SGPT 27 U/L (13-56); Albumin, Serum 3.6 g/dL (3.2-5.0); Alkaline Phosphatase 71 U/L (45-117); Anion Gap 8 (5-15); BUN 12 mg/dL (7-18); BUN/Creat Ratio 17.5 RATIO (10-20); Calcium,Total 9.5 mg/dL (8.5-10.1); Chloride 108 mmol/L (98-107); Creatinine, Serum 0.69 mg/dL (0.55-1.02); EST Glomerular Filtration Rate 93 mL/min (>60); Est Glom Filt Rate - Afr Amer 113 mL/min (>60); Estimated Creatinine Clearance 97.23 ml/min; Glucose 109 mg/dL (74-106); Potassium 3.7 mmol/L (3.5-5.1); Protein, Total 8.6 g/dL (6.4-8.2); Sodium Level 134 mmol/L (136-145)
[2023-11-25 08:17] LABS: Hematocrit 41.5 % (37-47); Hemoglobin 13.7 g/dL (12.0-15.0)
[2023-11-25 14:19] LABS: Hematocrit 42.5 % (37-47); Hemoglobin 14.2 g/dL (12.0-15.0)
--- NOTE | 2023-11-25 16:00 | COLBX_PTH ---
PATIENT: WILLIE GODINEZ LOC: [facility]3 U#:[id number] AGE/SX: 58/F ROOM: [facility] [place] RE11/24/[address]: Dr. Esmer Nuñez DO : 1965 BED: 1 DIS: 11/25/2023 SPEC #: [id number] RECD: 11/25/23 18:06 STATUS: ABUNDIO STRONG #: [id number] ANDRZEJ: 11/25/23 16:[address]: Khadar Reynolds DEPT: SURGICAL PATHOLOGY RECD BY: Kelsey Pandya ENTERED: 11/26/23 13:05 SP TYPE: COLON BX TAYLOR DR: MD Dr. Esmer Watson DO Dr. Nolan Byler, DO Tissues: A - COLON BIOPSY B - Sigmoid colon biopsy Procedures: Surgery Specimen Level IV HEADER OPERATION: Colonoscopy with biopsy and clipping PRE-OP DIAGNOSIS: Bright red rectal bleeding, abdominal pain, Gilbert's disease TISSUE SUBMITTED: A- Random colon biopsy, B- Sigmoid colon polyp biopsy MICROSCOPIC DIAGNOSIS A. Colon, random biopsy: Fragments of colonic mucosa, no pathologic diagnosis. B. Sigmoid colon polyp, biopsy: Inflammatory polyp. 11/27/2023 MICROSCOPIC DESCRIPTION Slides are reviewed. GROSS DESCRIPTION A. Received in fixative is one container labeled with the patient's name and designated Random colon biopsy. The specimen consists of multiple irregular fragments of light kessler soft tissue that in aggregate measure 1.5 x 0.5 x 0.1 cm. The specimen is totally submitted in one cassette. B. Received in fixative is one container labeled with the patient's name and designated Sigmoid colon polyp biopsy. The specimen consists of one irregular fragment of light kessler soft tissue that measures 0.3 x 0.3 x 0.1 cm. The specimen is totally submitted in one cassette. 11/26/2023 TC:5 CPT:38351a2
--- NOTE | 2023-11-25 16:05 | PRE.ANES_ITS ---
ASA Classification* ASA Classification ASA Classification: 3 and E Assessment & Plan Anesthesia* Anesthesia Assessment Anesthesia Assessment: Discussed sedation and/or anesthesia options, risks, benefits, and alternatives with patient/parents/legal guardian/POA. Questions invited. The patient/parents/legal guardian/POA seems to understand and agrees to proceed with anesthesia plan. Reviewed the physical assessment, medical history, allergy history and patient home medications list prior to surgery/procedure/anesthetic and documented any changes. Performed airway and anesthesia risk assessments. Anesthesia Type Anesthesia Type: MAC (see written pre anesthesia record for full assessment) Anesthesia Focused Assessment* Temperature: 97.8 F Pulse Rate: 65 Blood Pressure: 136/79 Respiratory Rate: 18 Pulse Ox: 97 Airway Assessment Mouth opens: >3 cm Mallampati Score: II Focused Labs Anesthesia Preop lab: CBC WBC 8.0 K/mm3 (4.4-11.0) 11/24/23 12:53 RBC 4.54 M/mm3 (4.2-5.4) 11/24/23 12:53 Hgb 14.2 g/dL (12.0-15.0) 11/25/23 14:11 Hct 42.5 % (37-47) 11/25/23 14:11 Plt Count 322 K/mm3 (150-450) 11/24/23 12:53 CHEMISTRY Potassium 3.7 mmol/L (3.5-5.1) 11/25/23 02:30 Sodium 134 mmol/L (136-145) L 11/25/23 02:30 BUN 12 mg/dL (7-18) 11/25/23 02:30 Creatinine 0.69 mg/dL (0.55-1.02) 11/25/23 02:30 Glucose 109 mg/dL (74-106) H 11/25/23 02:30 COAG Pre-Assessment Diagnosis/Proposed Procedure Planned Operative Procedure(s): colon Anesthesia History Anesthesia History - pattern 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 When Was Last Pacemaker Check QUESTION #4 FULL TEXT: You/Your Family Experience fever (hyperthermia) with Anesthesia Last Oral Intake Last Oral intake: Last Oral Intake NPO since 00:00 11/25/23 14:19 Meds taken in AM with sips of No 11/25/23 14:19 water? Meds patient instructed to take am of surgery PONV PONV - pattern chain builder: PONV - pattern chain builder Female HX of Motion Sickness HX of N/V After Surgery Non-Smoker Duration of Surgery greater than 60 minutes Number of Risk Factors PONV Score Height & Weight Height & Weight: Anesthesia: Height & Weight Height 5 ft 2 in 11/25/23 14:19 Weight: 100.244 kg 11/25/23 14:19 Body Mass Index (BMI) 40.4 11/25/23 14:19 Respiratory Assessment Respiratory Assessment - pattern chain builder: Respiratory Tract Infection Hx - pattern chain builder Hx Respiratory Tract Infection STOP Sleep Apnea STOP Sleep Apnea - pattern chain builder: STOP Sleep Apnea - pattern chain builder Hx Hypertension No 11/24/23 18:23 Hx Sleep Apnea No 11/24/23 18:23 CPAP BIPAP Do you snore loudly (louder No 11/24/23 18:23 than talking or can be heard Do you often feel tired/ No 11/24/23 18:23 fatigued/ sleepy during daytime? Has anyone observed you stop No 11/24/23 18:23 breathing during sleep? STOP Results Negative 11/24/23 18:23 QUESTION #5 FULL TEXT : Do you snore loudly (louder than talking or can be heard through closed doors)? 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 Specify any problems Hx of Preganancy in last 3 No 11/24/23 18:23 Months Nurse Filling Out Transfusion RKSATYA 11/24/23 18:23 & Questions: Date: 11/24/23 11/24/23 18:23 Time: 18:30 11/24/23 18:23 Patient unable to answer at this time (ie. confused, unrespo /Reproduction History /Reproductive History - pattern chain builder: /Reproductive Hx- pattern chain builder Hx Now No 11/24/23 21:08 Gestational Age (in weeks): EDC: Hx Hx Para Hx Section SAB No 11/24/23 21:08 Active Medications Active Medications: Current Medications Generic Name Dose Route Start Last Admin Trade Name Freq PRN Reason Stop Dose Admin Melatonin 3 mg 11/24/23 19:09 Melatonin 3 Mg Tablet PO QHS PRN PRN INSOMNIA Morphine Sulfate 2 mg 11/24/23 19:09 Morphine 2 Mg/Ml Syringe IV Q3H PRN PRN Pain Score 4-10 Ondansetron HCl 4 mg 11/24/23 19:09 11/24/23 23:42 Ondansetron 4 Mg/2 Ml Vial IV 4 mg Q8H PRN PRN Administration NAUSEA/VOMITING Sodium Chloride 10 - 40 ml 11/24/23 18:38 0.9% Saline Lock 10 Ml Syringe IV UD PRN SALINE FLUSH PFSH Medical History Hypothyroid Home Medications ?Medication ?Instructions ?Recorded ?Last Taken ?Type levofloxacin 750 mg tablet 750 mg PO DAILY #7 tabs 02/27/21 Unknown Rx levothyroxine 125 mcg tablet 125 mcg PO DAILY 02/27/21 Unknown History Allergy/AdvReac Type Severity Reaction Status Date / Time prednisone Allergy Hives Verified 11/24/23 12:07 Family History Other Heart disease Social History Smoking Status: Never smoker Review of Systems (Anesthesia) ROS Narrative System reviewed and no additional complaints, except as documented.
--- NOTE | 2023-11-25 16:55 | DS.PCM_ITS ---
Providers Date of Admission: 11/24/23 Date of Discharge: 11/25/23 Primary Care Physician: Dr. Ike Sheth, Consultations 11/24/23 19:09 Consult: Gastroenterology Routine Consulting Provider: [facility] Reason for Consult: Hematochezia EMERGENT Consult: No MD Notified: Yes Date Notified: 11/24/23 Time Notified: 16:55 Method of Notification: ED Physician Initiated Reason For Visit: GI BLEED Diagnosis Discharge Diagnosis (1) Bright red rectal bleeding: Status: Acute Code(s): K62.5 - Hemorrhage of anus and rectum (2) Abdominal pain: Status: Acute Code(s): R10.9 - Unspecified abdominal pain Qualifiers: Abdominal location: lower abdomen, unspecified Qualified Code(s): R 10.30 - Lower abdominal pain, unspecified (3) [place] disease: Status: Acute Code(s): E80.4 - Gilbert syndrome Medications at Discharge Home Medications levothyroxine 125 mcg tablet 125 mcg PO DAILY 02/27/21 ciprofloxacin HCl 500 mg tablet 500 mg PO BID #28 tabs 11/25/23 metronidazole 500 mg tablet 500 mg PO TID #42 tabs 11/25/23 Hospital Course Procedures Colonoscopy and - (CT abdomen and pelvis) Summary of Care Provided Minutes Spent on Discharge: 38 Hospital Course: Mrs. Barraza is a 58-year-old white female who presented to the emergency department at [facility] on 11/24/2023 due to hematochezia. Her symptoms started about 3 days prior to presentation. She indicated she was passing some bloody clumps rectally and it was associated with about a 3-week history of lower abdominal pain. Since the rectal bleeding started it gradually got to the point where she was only seeing blood when she wiped her rectum. On the day of presentation she had not noted any obvious blood in her stool at all. At the time of presentation she went to her primary care physician who recommended she came to the emergency department. In the emergency department she was found to have occult positive stool and had not had previous colonoscopy. Vital signs on admission were unremarkable other than elevated blood pressure 174/85. She is not on any antihypertensives at baseline. CBC was overall unremarkable with a hemoglobin of 13.6. Her hemoglobin was cycled and was 13.4, 14.5, 13.7, and 14.2. ESR was ordered by gastroenterology and found to be mildly elevated at 35. Chemistry panel was overtly unremarkable. Bilirubin was mildly elevated 1.3 however this is chronic and I suspect she has Gilbert's disease at baseline. CRP was slightly elevated 8.49. Lipase was normal at 48. CT of the abdomen pelvis was performed and showed some mild fatty infiltration of the liver and scattered diverticuli in the sigmoid colon. No acute findings were noted. Her symptoms had improved dramatically by 11/25/2023 with resolution of her abdominal pain she had no further bloody bowel movements. Colonoscopy was done on 11/25/2023 and demonstrated infectious colitis and there was purulent material coming out of the diverticulum. No obvious bleeding at the time of colonoscopy was noted. Given her symptoms being resolved, it was felt she was safe for discharge but it was recommended that we continue antibiotics for another 14 days. She will be discharged with ciprofloxacin 500 mg p.o. twice daily and Flagyl 500 mg p.o. 3 times daily for the next 14 days to complete antibiotic treatment. Extensive panel was ordered by gastroenterology prior to discharge all of which was pending at the time of discharge and will need follow-up as an outpatient. She was able to be discharged home in stable condition on 11/25/2023. I have advised her to call Dr. Reynolds's office to schedule outpatient follow-up to be seen within the next 2 to 4 weeks after discharge. Discharge diagnoses: Hematochezia secondary to infectious colitis secondary to diverticulitis Abdominal pain-resolved Hypothyroidism Gilbert's Disease Fatty liver Morbid obesity Physical Exam Const alert, oriented x3, no apparent distress, no limitations, healthy appearing and well nourished; Negative for average body habitus Constitutional Narrative: Morbidly obese, white female, lying in bed, appears comfortable, nontoxic, very pleasant General Appearance: cooperative, comfortable, well kempt and well developed Orientation / Consciousness: awake, oriented to person, oriented to place and oriented to time Exam Limitations: no limitations Nutritional Appearance: morbidly obese HEENT normocephalic, head/scalp atraumatic, hearing grossly normal bilaterally and moist oral mucous membranes HEENT Narrative: Mallampati 3, no thrush Resp normal respiratory effort, no retractions, no use of accessory muscles and clear to auscultation bilaterally Auscultation: Negative for rales, rhonchi or wheezes Cardio regular rate, regular rhythm, S1 normal heart sound, S2 normal heart sound, no murmurs, no rub, no gallops and no clicks GI normal to inspection, nondistended, normoactive bowel sounds, soft to palpation and non-tender Extremity no clubbing, cyanosis or edema Neuro oriented x3, moves all extremities and no focal motor deficits Speech: speech normal Psych affect normal Psych Narrative: Very pleasant, interacts appropriately Weight / BMI Weight Weight: 100.244 kg Body Mass Index (BMI) 40.4 ABG / Lab / Microbiology Data 11/25/23 14:11 11/25/23 02:30 Laboratory: Laboratory Results - last 24 hr 11/24/23 19:58: Hgb 13.4, Hct 40.4, ESR 35 H, C-React Prot Ext Range 8.49 H 11/25/23 02:30: Hgb 14.5, Hct 44.1, Sodium 134 L, Potassium 3.7, Chloride 108 H, Carbon Dioxide 18.0 L, Anion Gap 8, BUN 12, Creatinine 0.69, Estim Creat Clear Calc 97.23, Est GFR (MDRD) Af Amer 113, Est GFR (MDRD) Non-Af 93, BUN/Creatinine Ratio 17.5, Glucose 109 H, Calcium 9.5, Total Bilirubin 1.70 H, AST 21, ALT 27, Alkaline Phosphatase 71, Total Protein 8.6 H, Albumin 3.6, Globulin 5.0 H, A lbumin/Globulin Ratio 0.7 L 11/25/23 07:57: Hgb 13.7, Hct 41.5 11/25/23 14:11: Hgb 14.2, Hct 42.5 Microbiology: Microbiology 11/24/23 13:25 Stool Stool Occult Blood (REDD) - Final Occult Blood Positive D/C Instructions Discharge Diet: Light diet - advance as tolerated Discharge Activity: Return to Normal Activity Return to work on: 11/27/23 Meaningful Use Info Meaningful Use Meaningful Use Diagnoses (Choose all that apply): None applicable Ischemic Stroke Statin Dosing Therapy Reference: STATIN DOSE THERAPY REFERENCE: * Patients > 75 years receive moderate or high dose statin therapy. * Patients 75 years or YOUNGER should receive HIGH intensity statin dose unless contraindicated. You will be required to document reason for non-treatment if statin daily dose does not meet guidelines. HIGH DOSE STATIN THERAPY DAILY Atorvastatin > than or = to 40 mg Rosuvastatin > than or = to 20 mg Amlodipine + Atorvastatin > than or = to 2.5/40 mg Ezetimibe + Simvastatin 10/80 mg Simvastatin 80mg Discharge Plan Admission Admit Date/Time: 11/24/23 15:44 Primary Reason for Your Visit: Abdominal pain/rectal bleeding Attending Provider: Esmer Nuñez Primary Care Provider: Ike Sheth Consulting Providers: Lele Michael Instructions Additional Instructions / Restrictions: 1. Your colonoscopy showed infectious colitis likely related to infected diverticula in your colon. Dr. Reynolds recommended to continue antibiotics with ciprofloxacin and metronidazole for total of 14 days. Please complete your antibiotics as ordered. Discharge Orders/Prescriptions Prescriptions: New ciprofloxacin HCl 500 mg tablet 500 mg PO BID Qty: 28 0RF metronidazole 500 mg tablet 500 mg PO TID Qty: 42 0RF Continued levothyroxine 125 mcg Tablet 125 mcg PO DAILY Referrals / Follow Up: Ike Sheth DO [Primary Care Provider] - See Referral Note (As needed) Khadar Reynolds DO [Med Staff - Active Staff] - See Referral Note (Call office on 11/26/2023 to set up an appointment to be seen for posthospital follow-up in the next 2 to 4 weeks) Disposition Disposition (needs filled in before D/C Order can be placed): Home, Self Care Charges/Coding Visit Charges Inpatient E&M: 31643 Disch Hosp >30min
--- NOTE | 2023-11-25 17:01 | PCM.POST.ANE ---
Anesthesia: Postop Eval I Current Vital Signs Temperature: 98 F Pulse Rate: 65 Blood Pressure: 136/79 Respiratory Rate: 16 Pulse Ox: 98 Oxygen Delivery Method: Room Air Assessment Airway patent: Yes Spontaneous unlabored respirations: Yes Mental status: Awake and Calm nausea: No Vomiting: No Anesthesia Complication: No Fluid Hydration Crystalloid volume administer (ml): 200 Total IV fluid infused: 200 Progress Note Anesthesia document: Postop Eval 1 completed: Yes
--- NOTE | 2023-11-25 17:02 | OP.COLON_ITS ---
Patient Name: Ivelisse Barraza Procedure Date: 11/25/2023 4:13 PM Date of : 1965 Age: 58 Procedure: Colonoscopy Indications: Hematochezia Providers: Khadar Reynolds DO Medicines: Monitored Anesthesia Care Patient Profile: This is a 58 year old female. Refer to note in patient chart for documentation of history and physical. Last Colonoscopy: none. The patient's first colonoscopy is today. Complications: No immediate complications. Procedure: Pre-Anesthesia Assessment: - Prior to the procedure, a History and Physical was performed, and patient medications and allergies were reviewed. The patient is competent. The risks and benefits of the procedure and the sedation options and risks were discussed with the patient. All questions were answered and informed consent was obtained. Patient identification and proposed procedure were verified by the physician in the pre-procedure area. Mental Status Examination: alert and oriented. Airway Examination: normal oropharyngeal airway and neck mobility. Respiratory Examination: clear to auscultation. CV Examination: normal. Prophylactic Antibiotics: The patient does not require prophylactic antibiotics. Prior Anticoagulants: The patient has taken no anticoagulant or antiplatelet agents except for NSAID medication. ASA Grade Assessment: II - A patient with mild systemic disease. After reviewing the risks and benefits, the patient was deemed in satisfactory condition to undergo the procedure. The anesthesia plan was to use monitored anesthesia care (MAC). Immediately prior to administration of medications, the patient was re-assessed for adequacy to receive sedatives. The heart rate, respiratory rate, oxygen saturations, blood pressure, adequacy of pulmonary ventilation, and response to care were monitored throughout the procedure. The physical status of the patient was re-assessed after the procedure. After I obtained informed consent, the scope was passed under direct vision. Throughout the procedure, the patient's blood pressure, pulse, and oxygen saturations were monitored continuously. The colonoscope was introduced through the anus and advanced to the cecum, identified by appendiceal orifice and ileocecal valve. The colonoscopy was performed without difficulty. The patient tolerated the procedure well. The quality of the bowel preparation was adequate. The terminal ileum, ileocecal valve, appendiceal orifice, and rectum were photographed. Scope In: 4:28:02 PM Scope Withdrawal Time 0 hours 15 minutes 34 seconds Scope Out: 4:47:02 PM Total Procedure Duration Time 0 hours 19 minutes 0 seconds Findings: The perianal and digital rectal examinations were normal. Diffuse moderate inflammation characterized by congestion (edema), erythema and friability was found in the recto-sigmoid colon, in the sigmoid colon, in the descending colon, in the ascending colon and in the cecum. Biopsies were taken with a cold forceps for histology. Verification of patient identification for the specimen was done. Estimated blood loss was minimal. A few small and large-mouthed diverticula were found in the recto-sigmoid colon and sigmoid colon. A 5 mm polyp was found in the sigmoid colon. The polyp was sessile. The polyp was removed with a jumbo cold forceps. Polyp resection was incomplete. The resected tissue was retrieved. A single medium-mouthed diverticulum was found in the sigmoid colon. To stop active bleeding, one hemostatic clip was successfully placed. Clip farm agent: [email or web address]. There was no bleeding at the end of the procedure. The terminal ileum appeared normal. Impression: - Diffuse moderate inflammation was found in the recto-sigmoid colon, in the sigmoid colon, in the descending colon, in the ascending colon and in the cecum secondary to colitis and secondary to infectious colitis. Biopsied. - Diverticulosis in the recto-sigmoid colon and in the sigmoid colon. - One 5 mm polyp in the sigmoid colon, removed with a jumbo cold forceps. Incomplete resection. Resected tissue retrieved. - Diverticulosis in the sigmoid colon. Clip was placed. Clip farm agent: [email or web address]. - The examined portion of the ileum was normal. Recommendation: - Return patient to [facility] care. - Resume previous diet. - Continue present medications. - Await pathology results. - Repeat colonoscopy in 4 months for surveillance. Procedure Code(s): --- Professional --- 02744, 58, Colonoscopy, flexible; with control of bleeding, any method 87419, Colonoscopy, flexible; with biopsy, single or multiple CPT copyright 2021 [employer]. All rights reserved. The codes documented in this report are preliminary and upon drop clipper review may be revised to meet current compliance requirements. Khadar Reynolds DO 11/25/2023 5:01:52 PM This report has been signed electronically. Number of Addenda: 0 Note Initiated On: 11/25/2023 4:13 PM
--- NOTE | 2023-11-25 17:02 | OP.CCLET_ITS ---
11/25/2023 Ike Sheth Re : Colonoscopy procedure for Ivelisse Barraza Dear Domenic This procedure was performed on Saturday, November 25, 2023. My impressions and recommendations are as follows: Impressions : - Diffuse moderate inflammation was found in the recto-sigmoid colon, in the sigmoid colon, in the descending colon, in the ascending colon and in the cecum secondary to colitis and secondary to infectious colitis. Biopsied. - Diverticulosis in the recto-sigmoid colon and in the sigmoid colon. - One 5 mm polyp in the sigmoid colon, removed with a jumbo cold forceps. Incomplete resection. Resected tissue retrieved. - Diverticulosis in the sigmoid colon. Clip was placed. Clip dentist/owner: [employer]. - The examined portion of the ileum was normal. Recommendations : - Return patient to [facility] care. - Resume previous diet. - Continue present medications. - Await pathology results. - Repeat colonoscopy in 4 months for surveillance. My findings are described in the full procedure note, which is enclosed. If I can be of further assistance, please feel free to contact me at . Sincerely, Khadar Reynolds, 11/25/2023 5:01:52 PM This report has been signed electronically.
--- NOTE | 2023-11-25 17:47 | POSTOPAN2_ITS ---
Anesthesia Postop Eval I Sum Postop Eval Completion status Anesthesia document: Postop Eval 1 completed: Yes Anesthesia Postop Eval I Summary Anesthesia Postop Eval I Summary: Anesthesia Postop Eval I: Assessment Summary Airway patent Yes 11/25/23 17:02 SOCIAL AND HUMAN SERVICES [email or web address] Spontaneous unlabored Yes 11/25/23 17:02 SOCIAL AND HUMAN SERVICES ASSISTANT.[email or web address] respirations Mental status Awake,Calm 11/25/23 17:02 SOCIAL AND HUMAN SERVICES ASSISTANT.[email or web address] nausea No 11/25/23 17:02 SOCIAL AND HUMAN SERVICES [email or web address].[email or web address] Vomiting No 11/25/23 17:02 SOCIAL AND HUMAN SERVICES [email or web address].[email or web address] Anesthesia Postop Eval I: Fluid Summary Crystalloid volume administer 200 11/25/23 17:02 SOCIAL AND HUMAN SERVICES [email or web address].[email or web address] (ml) Colloids volume administered ( ml) Blood Product volume administered (ml) Total IV fluid infused 200 11/25/23 17:02 SOCIAL AND HUMAN SERVICES [email or web address].[email or web address] Anesthesia Postop Eval I: Summary Notes Anesthesia Complication No 11/25/23 17:02 SOCIAL AND HUMAN SERVICES [email or web address].[email or web address] Anesthesia Complication Comment: Post-operative progress note Anesthesia: Postop Eval II Evaluation Mental status: Awake and Calm Pain Level: 0 nausea: No Vomiting: No Complications Anesthesia Complication: No
--- NOTE | 2023-11-25 17:47 | PCM.POSTANE2 ---
Anesthesia Postop Eval I Sum Postop Eval Completion status Anesthesia document: Postop Eval 1 completed: Yes Anesthesia Postop Eval I Summary Anesthesia Postop Eval I Summary: Anesthesia Postop Eval I: Assessment Summary Airway patent Yes 11/25/23 17:02 PLANT PROTECTION [email or web address].[email or web address] Spontaneous unlabored Yes 11/25/23 17:02 PLANT PROTECTION SUPERINTENDENT.[email or web address] respirations Mental status Awake,Calm 11/25/23 17:02 PLANT PROTECTION SUPERINTENDENT.[email or web address] nausea No 11/25/23 17:02 PLANT PROTECTION SUPERINTENDENT.[email or web address] Vomiting No 11/25/23 17:02 PLANT PROTECTION SUPERINTENDENT.[email or web address] Anesthesia Postop Eval I: Fluid Summary Crystalloid volume administer 200 11/25/23 17:02 PLANT PROTECTION SUPERINTENDENT.[email or web address] (ml) Colloids volume administered ( ml) Blood Product volume administered (ml) Total IV fluid infused 200 11/25/23 17:02 PLANT PROTECTION [email or web address].[email or web address] Anesthesia Postop Eval I: Summary Notes Anesthesia Complication No 11/25/23 17:02 PLANT PROTECTION SUPERINTENDENT.[email or web address] Anesthesia Complication Comment: Post-operative progress note Anesthesia: Postop Eval II Evaluation Mental status: Awake and Calm Pain Level: 0 nausea: No Vomiting: No Complications Anesthesia Complication: No
[2023-11-25] MEDS: Acetaminophen 500 MG Tablet 1000 MG PO (17:53)
[2023-11-26 11:09] LABS: Anti-Centromere B Ab <0.2 AI (0.0-0.9); Anti-Chromatin <0.2 AI (0.0-0.9); Anti-Jo <0.2 AI (0.0-0.9); Anti-Scleroderma-70 AB <0.2 AI (0.0-0.9); Anti-dsDNA Ab 2 IU/mL (0-9); RNP Ab 0.6 AI (0.0-0.9); SJOGREN'S Anti-SS-A test < 0.2 AI (0.0-0.9); SJOGREN'S Anti-SS-B test < 0.2 AI (0.0-0.9); Smith Ab 0.3 AI (0.0-0.9)
[2023-12-01 14:08] LABS: ACCA 472 units (0-90); ALCA 23 units (0-60); AMCA 74 units (0-100); Albumin 3.7 g/dL (2.9-4.4); Alpha-1-Globulins 0.3 g/dL (0.0-0.4); Alpha-2-Globulins 0.8 g/dL (0.4-1.0); Cytoplasmic Ab (C-ANCA) <1:20 titer (Neg:<1:20); Gamma Globulin 1.4 g/dL (0.4-1.8); Immunoglobulin A 519 mg/dL (87-352); Immunoglobulin G 1284 mg/dL (586-1602); Immunoglobulin M 122 mg/dL (26-217); PROEL- TOTAL PROTEIN 7.4 g/dL (6.0-8.5); Perinuclear Ab (P-ANCA) <1:20 titer (Neg:<1:20); gASCA 14 units (0-50)
== END 2023-11-25 19:13 | disposition home or self-care (01) ==
LOC: ED 15:19 → MS3 17:48
PROVIDERS: Internal Medicine Gastroenterology; Nurse Practitioner; Admitting Provider Hospitalist; Emergency Provider Surgery; PCP Family Medicine; Visit Provider Internal Medicine
PROC: 0DJD8ZZ Inspection of Lower Intestinal Tract, Via Natural or Artificial Opening Endoscopic (ICD-10-PCS; CPT 45378; principal; 2023-11-25 15:55)
DX: K57.33 Diverticulitis of large intestine without perforation or abscess with bleeding (principal); E66.01 Morbid (severe) obesity due to excess calories; Z68.41 Body mass index [BMI] 40.0-44.9, adult; K63.5 Polyp of colon; E03.9 Hypothyroidism, unspecified; R03.0 Elevated blood-pressure reading, without diagnosis of hypertension; K76.0 Fatty (change of) liver, not elsewhere classified; E80.4 Gilbert syndrome; R79.82 Elevated C-reactive protein (CRP); A09 Infectious gastroenteritis and colitis, unspecified
CPT/HCPCS: 45382; 45380; 36415; 74177; 80053; 82274; 82784; 83516; 83605; 83690; 84165; 85014; 85018; 85025; 85652; 86036; 86140; 86225; 86235; 86256; 86334; 86671; 88305; 96361; 96374; 99221; 99283; J7030; Q9967; A4216; G0378; J2405